=== PATIENT | male | born 1980 | race Caucasian/White ===

== ENCOUNTER 2021-09-27 12:52 | Emergency (ER) | payer OTHER ==
[2021-09-27 14:22] LABS: HEMOGLOBIN 15.2 gm/dl (14.0-17.5); RED BLOOD COUNT 5.34 M/UL (4.20-5.50)
[2021-09-27 14:49] LABS: BUN/CREATININE RATIO 24 (0-10)
[2021-09-27] MEDS ORDERED: ASPIRIN CHEWABL81 MG PO (19:06)
[2021-09-27] MEDS ORDERED: NITROSTAT0.4 MG SL (19:06)
== END 2021-09-27 19:35 | disposition home or self-care (01) ==
LOC: ER1 12:52
PROVIDERS: Emergency Medicine
DX: R07.89 Other chest pain (principal)
CPT/HCPCS: 71045; 80053; 82550; 82553; 84484; 85025; 85379; 93005; 99285

== ENCOUNTER → 2021-11-01 | Outpatient (CLI) | payer OTHER ==
[~2021-11-01] MED LIST: ASPIRIN CHEWABL81 MG PO; NITROSTAT0.4 MG SL
== END ==
LOC: HEART 5 10-27 10:00
DX: R07.9 Chest pain, unspecified (principal); R53.83 Other fatigue
CPT/HCPCS: 93306